=== PATIENT | female | born 1955 | race Caucasian/White ===

== ENCOUNTER 2018-01-30 17:51 | Inpatient (IN) | payer OTHER ==
[~2018-01-30] VITALS: Ht 162.6 cm; Wt 52.2 kg
--- NOTE | 2018-01-30 18:08 | NUR ---
PT PRESENTED TO THE ER WITH A C/O CHEST DISCOMFORT. PT STATED THAT SHE JUST ARRIVED FROM [facility] 5 DAYS AGO. PT IS 94% ON RA. PT DOES NOT SPEAK [place]THER[place] IRISH. PT'S SISTER IS AT THE BEDSIDE TRANSLATING. PT IS ON THE MONITOR AND CONTINUOUS PULSE OX.
[2018-01-30 18:20] LABS: BASOPHILS % (AUTO) 0.4 % (0.0-2.0); EOSINOPHILS % (AUTO) 2.8 % (0.0-6.0); HEMATOCRIT 33 % (33-45); HEMOGLOBIN 11.5 g/dL (11.5-14.8); LYMPHOCYTES # (AUTO) 1.9 /CMM (0.8-4.8); MEAN CORPUSCULAR HGB CONC 35 g/dl (31.0-36.0); MEAN CORPUSCULAR VOLUME 93 fL (82-100); MONOCYTES # (AUTO) 0.5 /CMM (0.1-1.30); MONOCYTES % (AUTO) 9.8 % (2.0-12.0); NEUTROPHILS # (AUTO) 2.1 /CMM (1.8-8.9); PLATELET COUNT (AUTO) 236 /CMM (150-450); RDW COEFFICIENT OF VARIATION 11.8 (11.5-15.0); RED BLOOD CELL COUNT(AUTO) 3.53 MIL/uL (4.0-5.2); WHITE BLOOD COUNT (AUTO) 4.6 K/uL (4.3-11.0)
--- NOTE | 2018-01-30 18:23 | NUR ---
CXR IN PROGRESS AT THE BEDSIDE.
[2018-01-30 18:30] LABS: CALCIUM, SERUM 8.5 mg/dL (8.5-10.1); CREATININE 0.8 mg/dL (0.6-1.3); POTASSIUM 3.6 mmol/L (3.5-5.1)
[2018-01-30 18:43] LABS: TROPONIN I 0.705 ng/mL (0.00-0.056)
[2018-01-30] MEDS ORDERED: ASPIRIN 325 MG TABLET ONE (18:51)
[2018-01-30] MEDS ORDERED: ASPIRIN 325 MG TABLET PO ONE (19:00)
--- NOTE | 2018-01-30 19:20 | NUR ---
SPOKE TO LAB RE: [id number].
--- NOTE | 2018-01-30 20:00 | NUR ---
CALLED NURSING GRAPHIC SPECIALIST AND REQUESTED FOR A TELE BED
[2018-01-30 20:02] LABS: D-DIMER 0.32 mg/L(FEU (0.17-0.50); INR 0.92 (0.87-1.13)
--- NOTE | 2018-01-30 20:15 | NUR ---
PT IS ASSIGNED TO [facility]#: [id number], PT IS DIAGNOSED WITH CHEST PAIN, AND BETTINA FRAGA IS THE ACCEPTING ACCESS LEAD.
--- NOTE | 2018-01-30 20:30 | NUR ---
REPORT GIVEN TO RAJIV ARANDA
--- NOTE | 2018-01-30 20:33 | NUR ---
Lisa MATTA NP IS AT THE BEDSIDE.
[2018-01-30 20:45] VITALS: BP 134/78
--- NOTE | 2018-01-30 20:45 | NUR ---
DIRECTOR PATIENT FINANCIAL SERVICES ADMITTING NOTES RECEIVED PATIENT FROM ER AWAKE ALERT AND ORIENTED X 4 , ABLE TO MAKE SIMPLE NEEDS KNOW, SPEAKS LITTLE IRISH, IV SITE TO RIGHT FA 20 GAUGE INTACT AND PATENT NO REDNESS NO INFILTRATION PRESENT, BODY ASSESSMENT DONE INTACT, ON METAL FITTER SR AT 65 , DENIES CHEST PAIN AT THIS TIME, NOTED WITH COUGH, CLEAR PHLEM, ORIENTED TO STAFF,ROOM ,SAFETY MEASURES IN PLACE, BELONGINGS LIST DONE, MD AWARE OF ADMISSION WILL FOLLOW UP WITH ORDERS PER MD, PATIENT REMAINS COMFORTABLE AT THIS TIME.
[2018-01-30 21:00] VITALS: BP 134/78
[2018-01-30] MEDS ORDERED: ONDANSETRON HCL/PF 4 MG/2 ML VIAL IVP PRN (22:00)
[2018-01-30] MEDS ORDERED: HYDROCODONE/APAP 5/325MG 1 EACH TABLET PO PRN (22:00)
[2018-01-30] MEDS ORDERED: ACETAMINOPHEN 325 MG TABLET PO PRN (22:00)
[2018-01-30] MEDS ORDERED: MAG HYDROX/AL HYDROX/SIMETH 30 ML UDC PO PRN (22:00)
[2018-01-30] MEDS ORDERED: Z GUARD REMEDY 2 OZ OINT TP PRN (22:00)
[2018-01-30] MEDS ORDERED: MAGNESIUM HYDROXIDE 30 ML UDC PO PRN (22:00)
[2018-01-30] MEDS ORDERED: MORPHINE SULFATE INJ 2 MG/ML DISP.SYRIN IV PRN (22:00)
[2018-01-30] MEDS ORDERED: MORPHINE SULFATE INJ 4 MG/ML DISP.SYRIN IV PRN (22:13)
[2018-01-30] MEDS: ENOXAPARIN SODIUM 60 MG/0.6 ML DISP.SYRIN SQ SCH (22:59)
[2018-01-31] VITALS: BP 129/72
--- NOTE | 2018-01-31 00:10 | NUR ---
[facility] BPC ARCHITECT NOTES NOTED WITH ELEVATED TROPONIN LEVEL 0.705 NOTED INCREASE TO 5.825 , BETTINA FRAGA MADE AWARE, PATIENT ASYMPTOMATIC, DENIES AND COMPLAINTS OF CHEST PAIN AT THIS TIME, NO RESPIRATORY DISTRESS. WITH NEW ORDER FOR 12 LEAD EKG STAT. WILL CONTINUE TO MONITOR. Addendum: 01/31/18 at 0252 by MANOJ HOLLAND RN CLARIFICATION OF TIME 00:48
--- NOTE | 2018-01-31 01:30 | NUR ---
MASONRY CONTRACTOR ADMINISTRATOR NOTES OFFERED PATIENT OXYGEN VIA NASAL CANNULA FOR COMFORT, REFUSED STATED " NO,IM OKAY".
--- NOTE | 2018-01-31 01:50 | NUR ---
GEOMETRY TUTOR NOTES PHILLY MADE AWARE OF PATIENT ASYMPTOMATIC BLOOD PRESSURE OF 175/96 HEART RATE 69 O2 SAT 92% RESPIRATIONS 18, PER FRAGA CONTINUE TO OBTAIN 12 LEAD EKG. AND TROPONIN LABS ORDERED, CONTINUE TO MONITOR.
--- NOTE | 2018-01-31 01:55 | NUR ---
TWITCHELL OPERATOR NOTES ATTEMPTED TO OFFER OXYGEN VIA NC PATIENT REFUSED.
[2018-01-31] MEDS ORDERED: NITROGLYCERIN 0.4 MG/TAB BOTTLE SL PRN (02:00)
--- NOTE | 2018-01-31 02:16 | NUR ---
RAW FINISH MILL OPERATOR NOTES EKG DONE PHILLY MADE AWARE AWAITING RESPONSE, PATIENT REMAINS COMFORTABLE AT THIS TIME, ASYMPTOMATIC, WILL CONTINUE TO MONITOR
[2018-01-31 04:00] VITALS: BP 161/87
[2018-01-31 06:49] LABS: EOSINOPHILS % (AUTO) 3.6 % (0.0-6.0); HEMATOCRIT 36 % (33-45); HEMOGLOBIN 12.6 g/dL (11.5-14.8); LYMPHOCYTES # (AUTO) 1.7 /CMM (0.8-4.8); LYMPHOCYTES % (AUTO) 49.4 % (20.0-44.0); MEAN CORPUSCULAR HGB CONC 35 g/dl (31.0-36.0); MEAN CORPUSCULAR VOLUME 93 fL (82-100); MONOCYTES # (AUTO) 0.3 /CMM (0.1-1.30); MONOCYTES % (AUTO) 8.6 % (2.0-12.0); NEUTROPHILS # (AUTO) 1.3 /CMM (1.8-8.9); NEUTROPHILS % (AUTO) 37.4 % (43.0-81.0); PLATELET COUNT (AUTO) 234 /CMM (150-450); RDW COEFFICIENT OF VARIATION 12.8 (11.5-15.0); WHITE BLOOD COUNT (AUTO) 3.5 K/uL (4.3-11.0)
--- NOTE | 2018-01-31 07:07 | NUR ---
JUNIOR MECHANICAL ENGINEER CLOSING NOTES PATIENT AWAKE ALERT AND ABLE TO MAKE SIMPLE NEEDS KNOWN, NO RESPIRATORY DISTRESS , DENIES ANY PAIN OR DISCOMFORT, DENIES CHEST PAIN, IV SITE TO RIGHT ARM INTACT AND PATENT, NO REDNESS NO INFILTRATION PRESENT,PATIENT IS SLEEPING BUT EASILY AROUSABLE, CALL LIGHT KEPT WITHIN REACH WILL CONTINUE TO MONITOR AND ENDORSE TO NEXT SHIFT.
[2018-01-31 07:12] LABS: CALCIUM, SERUM 8.6 mg/dL (8.5-10.1); CREATININE 0.6 mg/dL (0.6-1.3); MAGNESIUM 1.7 mg/dL (1.8-2.4); PHOSPHORUS 3.3 mg/dL (2.5-4.9); THYROID STIMULATING HORMONE 1.331 uIU/mL (0.358-3.74)
--- NOTE | 2018-01-31 07:30 | NUR ---
RN OPENING NOTES RECEIVED PT. PT IS STABLE AND RESTING IN BED. NO S/S OF RESP DISTRESS/SOB, HOWEVER PT HAS MILD NON-PRODUCTIVE COUGH. NO C/O CHEST PAIN OR GENERAL PAIN AT THIS MOMENT. TELE MONITOR IN PLACE, READING ST AT APPROX 105 BPM. IV ACCESS LOCATED ON RIGHT FA 20G, SL. PER GUEST RELATION OFFICER REPORT PT TROP ELEVATED FROM 0.705 - 5.825. PT PLACED ON NPO FOR POTENTIAL TEST/PROCEDURE, WILL F/U WITH MD. SAFETY MEASURES IN PLACE, CALL LIGHT WITHIN REACH. WILL CONTINUE TO MONITOR.
[2018-01-31 08:00] VITALS: BP 164/92
[2018-01-31] MEDS ORDERED: CARVEDILOL 3.125 MG TABLET PO SCH (09:00)
[2018-01-31] MEDS ORDERED: ATORVASTATIN 10 MG TABLET PO SCH (09:00)
[2018-01-31] MEDS ORDERED: ASPIRIN 81 MG TAB.CHEW PO SCH (09:00)
[2018-01-31] MEDS: Magnesium 1GM/D5W 100ML PREMIX 100 ML IV SCH ×2 (09:22→10:01)
[2018-01-31 09:33] VITALS: BP 164/92
[2018-01-31] MEDS: ENOXAPARIN SODIUM 60 MG/0.6 ML DISP.SYRIN SQ SCH (09:34)
--- NOTE | 2018-01-31 12:30 | NUR ---
DISCHARGE NOTE PT DISCHARGED FROM HOSPITAL AMA. WAS WARNED ABOUT POTENTIAL RISKS AND BENEFITS OF STAYING FOR ADMISSION, HOWEVER PT INSISTS ON D/C. D/C AND AMA PAPERWORK SIGNED, COPIED AND PLACED IN CHART. IV ACCESS AND ID BAND REMOVED. PT REFUSED ALL PHOTOS. PT LEFT HOSPITAL IN PRIVATE VEHICLE WITH FAMILY.
== END 2018-01-31 11:50 | disposition left against medical advice (07) | DRG 282 ==
LOC: ER 17:53 → TELE 20:27
PROVIDERS: ADMIT Nurse Practitioner Acute Care; ATTEND Nurse Practitioner Acute Care
DX: I21.4 Non-ST elevation (NSTEMI) myocardial infarction (principal); D56.9 Thalassemia, unspecified; F12.90 Cannabis use, unspecified, uncomplicated; D64.9 Anemia, unspecified; Z72.0 Tobacco use; Z82.49 Family history of ischemic heart disease and other diseases of the circulatory system; J40 Bronchitis, not specified as acute or chronic; I10 Essential (primary) hypertension
CPT/HCPCS: 36415; 71045-TC; 80048-TC; 80061-TC; 83735-TC; 84100-TC; 84443-TC; 84484-TC; 85025-TC; 85378-TC; 85610-TC; 85730-TC; 87081-TC; 93307-TC; A4606; J1650; J3475; J7040; Z7610